=== PATIENT | female | born 1975 | race African-American/Black ===

== ENCOUNTER 2020-06-08 18:46 | Emergency (ER) | payer BC, MEDICAID ==
[~2020-06-08] VITALS: Ht 167.6 cm; Wt 100.0 kg
[2020-06-08] MEDS ORDERED: SODIUM CHLORIDE 0.9% 1,000 ML IV ONE (19:37)
[2020-06-08] MEDS ORDERED: MORPHINE SULFATE 4 MG/ML CPJ (NOT FOR IM USE) IV STA (19:37)
[2020-06-08] MEDS ORDERED: ONDANSETRON HCL 4MG/2ML INJ IV STA (19:37)
[2020-06-08 20:00] VITALS: BP 130/80
[2020-06-08 21:59] LABS: HEMATOCRIT. 31.7 % (36.0-48.0); MEAN CORPUSCULAR HEMOGLOBIN 21.4 pg (28.0-32.0); MEAN CORPUSCULAR VOLUME 67.8 fL (81.0-99.0); PLATELET 415 x1000/uL (130-400); RED BLOOD CELL COUNT 4.67 mill/uL (4.2-5.4); RED CELL DISTRIBUTION WIDTH 18.8 % (11.6-14.6)
[2020-06-08 22:03] LABS: CHLORIDE 102 mEq/L (98-107)
[2020-06-08 22:05] LABS: HCG SCREEN NEGATIVE; INR 1.2; PROTHROMBIN TIME 12.8 sec (9.6-11.0)
[2020-06-08 22:48] LABS: PLATELET ESTIMATE NORMAL
[2020-06-08] MEDS ORDERED: PIPERACILLIN/TAZ 3.375G PREMIX 50 ML IV NR (23:00)
== END 2020-06-08 22:30 | disposition left against medical advice (07) ==
LOC: ER 18:46 → CANBEDREQ 06-09 01:36
DX: R10.13 Epigastric pain (principal); D50.9 Iron deficiency anemia, unspecified; Z90.49 Acquired absence of other specified parts of digestive tract
CPT/HCPCS: 36415; 71045; 80053; 83605; 83690; 84703; 85025; 85610; 99284; J2405; J7030; J2270

== ENCOUNTER 2020-06-08 23:34 | Inpatient (IN) | payer BC, MEDICAID ==
[~2020-06-08] VITALS: Ht 167.6 cm; Wt 99.8 kg
[2020-06-09] MEDS ORDERED: PIPERACILLIN/TAZ 3.375G PREMIX 50 ML IV ONE ×2 (00:30→03:18)
[2020-06-09] MEDS ORDERED: ONDANSETRON HCL 4MG/2ML INJ IV STA (01:10)
[2020-06-09] MEDS ORDERED: MORPHINE SULFATE 4 MG/ML CPJ (NOT FOR IM USE) IV STA (01:10)
[2020-06-09] MEDS ORDERED: SODIUM CHLORIDE 0.9% 1,000 ML IV ONE (01:10)
[2020-06-09] MEDS ORDERED: KETOROLAC 30MG/ML VIAL IV ONE (01:30)
[2020-06-09] MEDS ORDERED: IOHEXOL-300 100 ML BOTTLE ONE (05:48)
[2020-06-09] MEDS ORDERED: ONDANSETRON HCL 4MG/2ML INJ ONE (07:43)
[2020-06-09] MEDS: KETOROLAC 15MG/ML VIAL IV PRN ×3 (09:28→16:48)
[2020-06-09] MEDS ORDERED: KETOROLAC 15MG/ML VIAL ONE (09:32)
[2020-06-09] MEDS ORDERED: HYDROCODONE/ACETAMINOPHEN 5/325MG TABLET PO PRN (10:45)
[2020-06-09] MEDS ORDERED: PIPERACILLIN/TAZOBACTAM 3.375 G in DEXT 5% WATER 100 ML IV SCH (11:00)
[2020-06-09 12:20] LABS: MEAN CORPUSCULAR HEMOGLOBIN 21.8 pg (28.0-32.0); MEAN CORPUSCULAR VOLUME 67.6 fL (81.0-99.0); MEAN PLATELET VOLUME 6.7 fl (7.4-10.4); PLATELET 365 x1000/uL (130-400); RED BLOOD CELL COUNT 4.15 mill/uL (4.2-5.4); RED CELL DISTRIBUTION WIDTH 19.1 % (11.6-14.6)
[2020-06-09 12:31] LABS: CHLORIDE 104 mEq/L (98-107)
[2020-06-09 12:54] LABS: PLATELET ESTIMATE NORMAL
[2020-06-09] MEDS: ONDANSETRON HCL 4MG/2ML INJ IV PRN ×2 (14:33→23:53)
[2020-06-09 16:00] VITALS: BP 149/67
[2020-06-09] MEDS: PIPERACILLIN/TAZOBACTAM 3.375 G in DEXT 5% WATER 100 ML IV SCH (18:17)
[2020-06-09 19:36] LABS: CLARITY URINE CLOUDY (CLEAR); COLOR URINE YELLOW (YELLOW); KETONES URINE TRACE (NEGATIVE); LEUKOCYTE ESTERASE URINE 2+ (NEGATIVE); NITRITE URINE NEGATIVE (NEGATIVE); OCCULT BLOOD URINE 2+ (NEGATIVE); PH URINE 5.5 (4.5-8.0); PROTEIN URINE 2+ (NEGATIVE); SPECIFIC GRAVITY URINE 1.032 (1.005-1.030)
[2020-06-09 20:00] VITALS: BP 139/64
[2020-06-09 20:17] LABS: *AMPHETAMINES SCREEN URINE NEGATIVE (NEGATIVE); *BARBITURATES SCREEN URINE NEGATIVE (NEGATIVE); *BENZODIAZEPINES SCREEN URINE NEGATIVE (NEGATIVE); *COCAINE SCREEN URINE NEGATIVE (NEGATIVE); METHADONE URINE SCREEN NEGATIVE (NEGATIVE)
[2020-06-09 20:18] LABS: CANNABINOID URINE SCREEN NEGATIVE (NEGATIVE); OPIATES URINE SCREEN NEGATIVE (NEGATIVE); PHENCYCLIDINE URINE SCREEN NEGATIVE (NEGATIVE)
[2020-06-10] VITALS (7 sets, daily range): BP systolic 116–137; BP diastolic 39–78
[2020-06-10] MEDS: PIPERACILLIN/TAZOBACTAM 3.375 G in DEXT 5% WATER 100 ML IV SCH ×2 (00:20→06:50)
[2020-06-10] MEDS: KETOROLAC 15MG/ML VIAL IV PRN ×3 (00:35→13:34)
[2020-06-10] MEDS: ONDANSETRON HCL 4MG/2ML INJ IV PRN ×3 (06:38→23:56)
[2020-06-10 07:09] LABS: HEMATOCRIT. 27.9 % (36.0-48.0); HEMOGLOBIN. 8.9 g/dL (12.0-16.0); MEAN CORPUSCULAR HEMOGLOBIN 21.5 pg (28.0-32.0); MEAN CORPUSCULAR VOLUME 67.8 fL (81.0-99.0); MEAN PLATELET VOLUME 7.2 fl (7.4-10.4); PLATELET 358 x1000/uL (130-400); RED BLOOD CELL COUNT 4.12 mill/uL (4.2-5.4); RED CELL DISTRIBUTION WIDTH 19.5 % (11.6-14.6)
[2020-06-10 07:20] LABS: CHLORIDE 102 mEq/L (98-107)
[2020-06-10] MEDS: AMPICILLIN SOD/SULBACTAM NA 3 G in SODIUM CHLORIDE 0.9% 100 ML IV SCH ×2 (13:35→17:33)
[2020-06-10] MEDS: DOXYCYCLINE 100 MG in DEXT 5% WATER 100 ML IV SCH ×2 (13:48→23:07)
[2020-06-10] MEDS ORDERED: MORPHINE SULFATE 2 MG/ML CPJ (NOT FOR IM USE) IV PRN (15:00)
[2020-06-10] MEDS ORDERED: IPRATROPIUM/ALBUTEROL 0.5-3(2.5)MG/3ML NEB HHN PRN (15:00)
[2020-06-10] MEDS ORDERED: BISACODYL 10MG SUPP PR PRN (15:00)
[2020-06-10 15:21] LABS: PLATELET ESTIMATE NORMAL
[2020-06-10 15:38] LABS: HCG SCREEN NEGATIVE
[2020-06-10] MEDS: FAMOTIDINE 20MG/2ML VIAL IV SCH (16:08)
[2020-06-10] MEDS: DEXT 5%/0.45% NACL 1000ML 1,000 ML IV SCH (16:09)
[2020-06-10] MEDS ORDERED: POTASSIUM CHLORIDE INJ 40 MEQ in DEXT 5% WATER 250 ML IV SCH (17:00)
[2020-06-10] MEDS ORDERED: LORAZEPAM 2MG/ML CPJ IV NR (21:30)
[2020-06-10] MEDS: ACETAMINOPHEN 325MG TABLET PO PRN (23:52)
[2020-06-11] VITALS (7 sets, daily range): BP systolic 119–185; BP diastolic 49–95
[2020-06-11] MEDS: AMPICILLIN SOD/SULBACTAM NA 3 G in SODIUM CHLORIDE 0.9% 100 ML IV SCH ×4 (00:47→18:29)
[2020-06-11] MEDS: DEXT 5%/0.45% NACL 1000ML 1,000 ML IV SCH ×3 (01:59→21:11)
[2020-06-11 07:00] LABS: CHLORIDE 102 mEq/L (98-107)
[2020-06-11 07:05] LABS: HEMATOCRIT. 28.9 % (36.0-48.0); HEMOGLOBIN. 9.1 g/dL (12.0-16.0); MEAN CORPUSCULAR HEMOGLOBIN 21.3 pg (28.0-32.0); MEAN CORPUSCULAR VOLUME 67.8 fL (81.0-99.0); MEAN PLATELET VOLUME 7.3 fl (7.4-10.4); PLATELET 358 x1000/uL (130-400); RED BLOOD CELL COUNT 4.26 mill/uL (4.2-5.4); RED CELL DISTRIBUTION WIDTH 19.1 % (11.6-14.6)
[2020-06-11] MEDS: FAMOTIDINE 20MG/2ML VIAL IV SCH (09:54)
[2020-06-11] MEDS: DOXYCYCLINE 100 MG in DEXT 5% WATER 100 ML IV SCH ×2 (09:55→21:10)
[2020-06-11] MEDS ORDERED: POTASSIUM CHLORIDE INJ 40 MEQ in DEXT 5% WATER 250 ML IV NR (11:15)
[2020-06-11 17:47] LABS: PLATELET ESTIMATE NORMAL
[2020-06-11] MEDS: ONDANSETRON HCL 4MG/2ML INJ IV PRN (21:31)
[2020-06-11] MEDS: KETOROLAC 15MG/ML VIAL IV PRN (21:33)
[2020-06-11] MEDS: ACETAMINOPHEN 325MG TABLET PO PRN (21:50)
[2020-06-11] MEDS ORDERED: ZOLPIDEM TARTRATE 5MG TABLET PO PRN (22:00)
[2020-06-12] VITALS: BP 127/53
[2020-06-12] MEDS: AMPICILLIN SOD/SULBACTAM NA 3 G in SODIUM CHLORIDE 0.9% 100 ML IV SCH ×5 (00:06→23:01)
[2020-06-12 04:00] VITALS: BP 129/72
[2020-06-12 06:31] LABS: BASOPHILS % 0.3 % (0.0-2.0); EOSINOPHILS % 0.5 % (0.0-5.0); HEMATOCRIT. 28.4 % (36.0-48.0); LYMPHOCYTES % 9.6 % (20.0-50.0); MEAN CORPUSCULAR HEMOGLOBIN 21.3 pg (28.0-32.0); MEAN CORPUSCULAR VOLUME 67.2 fL (81.0-99.0); MONOCYTES % 9.6 % (2.0-8.0); PLATELET 360 x1000/uL (130-400); RED BLOOD CELL COUNT 4.22 mill/uL (4.2-5.4)
[2020-06-12 06:39] LABS: INR 1.1; PROTHROMBIN TIME 11.8 sec (9.6-11.0)
[2020-06-12] MEDS: DEXT 5%/0.45% NACL 1000ML 1,000 ML IV SCH (06:49)
[2020-06-12 06:56] LABS: CHLORIDE 100 mEq/L (98-107)
[2020-06-12 08:00] VITALS: BP 148/90
[2020-06-12] MEDS: DOXYCYCLINE 100 MG in DEXT 5% WATER 100 ML IV SCH ×2 (08:01→20:25)
[2020-06-12] MEDS: ACETAMINOPHEN 325MG TABLET PO PRN ×2 (08:01→16:15)
[2020-06-12] MEDS: FAMOTIDINE 20MG/2ML VIAL IV SCH (08:01)
[2020-06-12 08:08] LABS: NEISSERIA GONORRHOEAE NAA Negative (Negative)
[2020-06-12] MEDS ORDERED: POTASSIUM CHLORIDE 20MEQ TABLET SR PO SCH (11:15)
[2020-06-12 11:56] LABS: PLATELET ESTIMATE NORMAL
[2020-06-12 12:00] VITALS: BP 141/99
[2020-06-12] MEDS: DEXT 5%/0.9% NACL 1,000 ML IV SCH (13:27)
[2020-06-12] MEDS ORDERED: METOCLOPRAMIDE HCL 10MG/2ML VIAL IV SCH (15:00)
[2020-06-12 16:00] VITALS: BP 140/95
[2020-06-12] MEDS: METOCLOPRAMIDE HCL 10MG/2ML VIAL IV SCH ×2 (17:56→23:02)
[2020-06-12] MEDS: PANTOPRAZOLE SODIUM 40 MG/VIAL IV SCH (18:13)
[2020-06-12 20:00] VITALS: BP 124/60
[2020-06-12] MEDS: LORAZEPAM 2MG/ML CPJ IV PRN (23:02)
[2020-06-13] VITALS: BP 126/67
[2020-06-13 04:00] VITALS: BP 134/77
[2020-06-13] MEDS: AMPICILLIN SOD/SULBACTAM NA 3 G in SODIUM CHLORIDE 0.9% 100 ML IV SCH ×2 (05:17→14:01)
[2020-06-13] MEDS: DEXT 5%/0.9% NACL 1,000 ML IV SCH ×3 (05:17→21:14)
[2020-06-13] MEDS: METOCLOPRAMIDE HCL 10MG/2ML VIAL IV SCH ×4 (05:18→22:29)
[2020-06-13 06:51] LABS: BASOPHILS % 0.3 % (0.0-2.0); EOSINOPHILS % 0.6 % (0.0-5.0); HEMATOCRIT. 25.2 % (36.0-48.0); LYMPHOCYTES % 10.7 % (20.0-50.0); MEAN CORPUSCULAR HEMOGLOBIN 21.2 pg (28.0-32.0); MEAN CORPUSCULAR VOLUME 67.3 fL (81.0-99.0); MEAN PLATELET VOLUME 7.1 fl (7.4-10.4); MONOCYTES % 9.8 % (2.0-8.0); NEUTROPHILS % 78.6 % (40.0-76.0); PLATELET 301 x1000/uL (130-400); RED BLOOD CELL COUNT 3.75 mill/uL (4.2-5.4); RED CELL DISTRIBUTION WIDTH 19.4 % (11.6-14.6)
[2020-06-13 07:13] LABS: CHLORIDE 103 mEq/L (98-107)
[2020-06-13 08:00] VITALS: BP 129/59
[2020-06-13] MEDS: DOXYCYCLINE 100 MG in DEXT 5% WATER 100 ML IV SCH ×2 (08:44→21:14)
[2020-06-13] MEDS: PANTOPRAZOLE SODIUM 40 MG/VIAL IV SCH (08:44)
[2020-06-13] MEDS: POTASSIUM CHLORIDE 20MEQ TABLET SR PO SCH (08:44)
[2020-06-13 12:00] VITALS: BP 128/66
[2020-06-13 16:00] VITALS: BP 140/71
[2020-06-13] MEDS: METRONIDAZOLE 500MG TABLET PO SCH ×2 (16:19→22:27)
[2020-06-13] MEDS ORDERED: CEFTRIAXONE 1,000 MG in DEXTROSE 5% WATER 50 ML IV SCH (18:00)
[2020-06-13] MEDS ORDERED: IOHEXOL-300 100 ML BOTTLE ONE (18:18)
[2020-06-13 20:00] VITALS: BP 138/65
[2020-06-13] MEDS: FAMOTIDINE 20MG/2ML VIAL IV SCH (21:14)
[2020-06-13] MEDS: KETOROLAC 15MG/ML VIAL IV PRN (21:22)
[2020-06-14] VITALS: BP 143/56
[2020-06-14] MEDS: LORAZEPAM 2MG/ML CPJ IV PRN (00:29)
[2020-06-14 04:00] VITALS: BP 129/66
[2020-06-14] MEDS: METRONIDAZOLE 500MG TABLET PO SCH ×2 (05:17→15:03)
[2020-06-14] MEDS: METOCLOPRAMIDE HCL 10MG/2ML VIAL IV SCH ×2 (05:17→13:25)
[2020-06-14 06:58] LABS: BASOPHILS % 0.6 % (0.0-2.0); EOSINOPHILS % 2.2 % (0.0-5.0); HEMOGLOBIN. 7.8 g/dL (12.0-16.0); LYMPHOCYTES % 14.2 % (20.0-50.0); MEAN CORPUSCULAR HEMOGLOBIN 21.3 pg (28.0-32.0); MEAN CORPUSCULAR VOLUME 67.8 fL (81.0-99.0); MEAN PLATELET VOLUME 6.9 fl (7.4-10.4); MONOCYTES % 8.8 % (2.0-8.0); NEUTROPHILS % 74.2 % (40.0-76.0); PLATELET 268 x1000/uL (130-400); RED BLOOD CELL COUNT 3.69 mill/uL (4.2-5.4); RED CELL DISTRIBUTION WIDTH 19.2 % (11.6-14.6)
[2020-06-14 07:16] LABS: CHLORIDE 101 mEq/L (98-107)
[2020-06-14 08:00] VITALS: BP 140/80
[2020-06-14] MEDS: FAMOTIDINE 20MG/2ML VIAL IV SCH (09:22)
[2020-06-14] MEDS: POTASSIUM CHLORIDE 20MEQ TABLET SR PO SCH (09:22)
[2020-06-14] MEDS: DOXYCYCLINE 100 MG in DEXT 5% WATER 100 ML IV SCH (09:31)
[2020-06-14] MEDS ORDERED: POTASSIUM CHLORIDE 20MEQ TABLET SR PO NR (11:15)
[2020-06-14 12:00] VITALS: BP 138/74
[2020-06-14] MEDS ORDERED: DIPHENOXYLATE/ATROPINE 2.5/0.025MG TABLET PO SCH (13:30)
[2020-06-14 16:00] VITALS: BP 136/80
[2020-06-14 17:09] VITALS: BP 136/80
== END 2020-06-14 18:18 | disposition short-term general hospital (02) | DRG 872 ==
LOC: ER 23:34 → 6EST 06-09 01:13 → EDBEDREQ 06-09 01:19 → EDBEDREQTM 06-09 14:31 → EDBEDREQSVC 06-09 14:31 → ENRESERV 06-09 15:15 → 6WST 06-10 16:45 → 6EST 06-12 16:26
PROVIDERS: ADMIT Internal Medicine; ATTEND Internal Medicine
DX: A41.50 Gram-negative sepsis, unspecified (principal); N39.0 Urinary tract infection, site not specified; R58 Hemorrhage, not elsewhere classified; N70.93 Salpingitis and oophoritis, unspecified; E66.9 Obesity, unspecified; E87.6 Hypokalemia; D64.9 Anemia, unspecified; N89.8 Other specified noninflammatory disorders of vagina; N83.209 Unspecified ovarian cyst, unspecified side; B96.89 Other specified bacterial agents as the cause of diseases classified elsewhere; Z90.49 Acquired absence of other specified parts of digestive tract; Z97.5 Presence of (intrauterine) contraceptive device
CPT/HCPCS: 36415; 71045; 74177; 76830; 76856; 80048; 80053; 80305; 81003; 84703; 85025; 86850; 86900; 87076; 87491; 87591; 93306; 99285; C9113; J0295; J0696; J1885; J2060; J2270; J2405; J2543; J2765; J3480; J3490; J7030; J7042; J7050; J7060; Q9967